=== PATIENT | female | born 1955 | race Caucasian/White ===

== ENCOUNTER 2024-01-31 07:37 | Day surgery (SDC) | payer MEDICARE, OTHER, SELFPAY ==
[2024-01-27 11:48] VITALS: BMI 21.8
--- NOTE | 2024-01-30 14:18 | HO.ANESPROP2 ---
Documented by User: Siria Anna NP 01/30/24 14:18 HPI - Anesthesia Eval Consult details Narrative: 68yo F for Colonoscopy [facility] Past Medical History Medical History (Updated 01/27/24 @ 11:42 by Maite Hilario RN) Colon polyps Hyperlipidemia Osteopenia GERD (gastroesophageal reflux disease) Surgical History Surgical History (Updated 01/27/24 @ 11:42 by Maite Hilario RN) History of parotid gland excision Hx of breast biopsy History of open reduction and internal fixation (ORIF) procedure H/O colonoscopy Social History Social History Patient Tobacco Use Status: Never used Tobacco Use of substances other than those prescribed or required for medical reasons: No Are you DNR?: No Advance Directives: No Advance Directives Information Provided: Yes Meds Allergies Allergy/AdvReac Type Severity Reaction Status Date / Time terbinafine [From Lamisil] Allergy Unknown Verified 01/27/24 11:42 Home Medications Medication Instructions Recorded Confirmed Last Taken Type ascorbic acid (vitamin C) 500 mg 500 mg PO DAILY 01/27/24 01/27/24 Unknown History tablet (Vitamin C) cholecalciferol (vitamin D3) 25 25 mcg PO DAILY 01/27/24 01/27/24 Unknown History mcg (1,000 unit) tablet (Vitamin D3) glucosamine sulf dipot 1 cap PO DAILY 01/27/24 01/27/24 Unknown History chlr,msm,chond 550 mg-C 30 mg-shiva 1 mg capsule (Glucosamine Chondroitin) multivitamin 1 tab PO DAILY 01/27/24 01/27/24 Unknown History omega 8-fvs-rhi-fish oil 1,000 mg 1 cap PO DAILY 01/27/24 01/27/24 Unknown History (120 mg-180 mg) capsule (Fish Oil) omeprazole 20 mg capsule,delayed 20 mg PO DAILY 01/27/24 01/27/24 Unknown History release Exam Height,Weight and Vital Signs: Height 5 ft 5 in Weight 59.421 kg Assessment and Plan Assessment Anesthesia Assessment: Chart Reviewed Documented by User: Robbie Jade MD 01/31/24 09:02 [facility] Past Medical History Medical History (Updated 01/27/24 @ 11:42 by Maite Hilario, RN) Colon polyps Hyperlipidemia Osteopenia GERD (gastroesophageal reflux disease) Family History Family history of problems with anesthesia: No Surgical History Surgical History (Updated 01/27/24 @ 11:42 by Maite Hilario RN) History of parotid gland excision Hx of breast biopsy History of open reduction and internal fixation (ORIF) procedure H/O colonoscopy History of Problems with Anesthesia: No Social History Social History Patient Tobacco Use Status: Never used Tobacco Use of substances other than those prescribed or required for medical reasons: No Are you DNR?: No Advance Directives: No Advance Directives Information Provided: Yes Meds Allergies Allergy/AdvReac Type Severity Reaction Status Date / Time terbinafine [From Lamisil] Allergy Unknown Verified 01/27/24 11:42 Home Medications Medication Instructions Recorded Confirmed Last Taken Type ascorbic acid (vitamin C) 500 mg 500 mg PO DAILY 01/27/24 01/27/24 Unknown History tablet (Vitamin C) cholecalciferol (vitamin D3) 25 25 mcg PO DAILY 01/27/24 01/27/24 Unknown History mcg (1,000 unit) tablet (Vitamin D3) glucosamine sulf dipot 1 cap PO DAILY 01/27/24 01/27/24 Unknown History chlr,msm,chond 550 mg-C 30 mg-shiva 1 mg capsule (Glucosamine Chondroitin) multivitamin 1 tab PO DAILY 01/27/24 01/27/24 Unknown History omega 0-xbq-mey-fish oil 1,000 mg 1 cap PO DAILY 01/27/24 01/27/24 Unknown History (120 mg-180 mg) capsule (Fish Oil) omeprazole 20 mg capsule,delayed 20 mg PO DAILY 01/27/24 01/27/24 Unknown History release Exam Airway Mallampati Class: I TM Dist: >3cm Neck ROM: Full Loose/Missing/Broken Teeth: No Heart: ok Lungs: ok Assessment and Plan Assessment Anesthesia Assessment: Anesthesia Plan Discussed Final Anesthetic Review Family History of Problems with Anesthesia: No History of Problems with Anesthesia: No NPO: Yes ASA Class: II Final Preanesthetic Review: No Changes in Pt Med Stat, Meds/Allgs Chart Reviewed, Consent Obtained/Reviewed and Anes Risks/Benef Reviewed Patient Risk: Low Procedure Risk: Low Anesthetic Plan Anesthetic Plan: MAC: and Agree w/ Assess. and Plan Disposition: Standard PACU
[2024-01-31 07:53] VITALS: BMI 21.1
[2024-01-31 08:00] VITALS: BP 155/97; PULSE 69; RESP 18; TEMP 36.8; O2SAT 100
[2024-01-31] MEDS: Lactated Ringers 1,000 ML 100 ML IVCONT (08:21)
--- NOTE | 2024-01-31 08:40 | MHC.SHP ---
Pre-Procedural Eval Section A - 24 Hr Update-Section A only Date of Service: 01/31/24 Section B - Complete if H&P > 30 days Chief Complaint: screening Details of Present Illness: see H&P no change Relevant Family History (Specify if Yes): Yes Relevant Social History: None Present Medications: see Short Stay Collaborative assessment Medical History: No relevant PMH Allergies: Allergies Allergy/AdvReac Type Severity Reaction Status Date / Time terbinafine [From Lamisil] Allergy Unknown Verified 01/27/24 11:42 Review of Systems Sugical H&P ROS: Negative: Constitution, Cardiovascular, Respiratory, Neurological, Psychiatric, Hem-Onc, Allergic/Immunologic, Gastrointestinal, Genitourinary, Musculoskeletal, Integumentary, Endocrine and Eyes/Ears/Nose/Throat Exam Surgical H&P Exam: Normal: HEENT, Normal: Heart, Normal: Lungs, Normal: Extremities, Normal: Abdomen, Normal: Skin and Normal: Neurological Plan Diagnosis/Plan: Unchanged I have reviewed the history and physical and performed a pertinent physical examination on my patient. No changes have occurred unless specified. Time Spent With Patient Time: Total time managing care of this patient today ____ minutes.
[2024-01-31 09:26] VITALS: BP 97/52; PULSE 63; RESP 14; TEMP 36.4; O2SAT 98
[2024-01-31 09:41] VITALS: BP 123/71; PULSE 69; RESP 14; TEMP 36.6; O2SAT 100
--- NOTE | 2024-01-31 09:53 | OP_ITS ---
DATE OF SERVICE: 01/31/2024 SURGEON: Kailash Hitchcock MD INDICATIONS: Colon cancer screening and family history of colon cancer. PREOPERATIVE DIAGNOSIS: POSTOPERATIVE DIAGNOSIS: PROCEDURE PERFORMED: Colonoscopy to the cecum. ESTIMATED BLOOD LOSS: COMPLICATIONS: ANESTHESIA: Monitored anesthesia care. ASSISTANTS: SPECIMENS: DESCRIPTION OF PROCEDURE: A history and physical was performed. The risks and benefits of the procedure were explained to the patient and informed consent was obtained. The patient was placed in the left lateral decubitus position. A digital rectal exam was performed and was found to be normal. The Olympus pediatric video colonoscope was introduced into the rectum and advanced to the cecum. The cecum was identified by transillumination, palpation, and identification of ileocecal valve. Examination was performed and the scope was removed. She tolerated the procedure well and was taken to the recovery area in stable condition. FINDINGS: The terminal ileum was not examined. The visualized colonic mucosa was normal. The quality of the prep was good. The sigmoid was somewhat tortuous. No polyps were identified. Retroflexed examination showed small internal hemorrhoids. IMPRESSION: Normal colonoscopy. RECOMMENDATIONS: 1. Follow up as needed. 2. Repeat colonoscopy could be considered in 5 years due to family history. MD OSCAR Tong/MADDY / [id number]
== END 2024-01-31 10:21 | disposition home or self-care (01) ==
PROVIDERS: PCP Internal Medicine Geriatric Medicine; Visit Provider Internal Medicine Gastroenterology
PROC: 0DJD8ZZ Inspection of Lower Intestinal Tract, Via Natural or Artificial Opening Endoscopic (ICD-10-PCS; CPT 45378; principal; 2024-01-31 08:50)
DX: Z12.11 Encounter for screening for malignant neoplasm of colon (principal); K64.8 Other hemorrhoids; K58.0 Irritable bowel syndrome with diarrhea; Z79.899 Other long term (current) drug therapy; Z80.0 Family history of malignant neoplasm of digestive organs
CPT/HCPCS: G0105; J2704